=== PATIENT | male | born 2000 | race American Indian/Alaskan Native ===

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

== ENCOUNTER 2019-07-15 01:51 | Emergency (ER) | payer SELFPAY ==
[2019-07-15 02:04] VITALS: BP 118/80
[2019-07-15] MEDS ORDERED: DICYCLOMINE 20 MG TAB PO ONE (07:29)
--- NOTE | 2019-07-15 07:33 | Emergency Department Report ---
ED Abdominal Pain HPI - General Chief Complaint: Abdominal Pain Stated Complaint: STOMACH PAIN Time Seen by Provider: 07/15/19 07:10 Source: patient, EMS Mode of arrival: Ambulatory Limitations: No Limitations - History of Present Illness Initial Comments: This is a 19-year-old -Martiniquais male who presents to the emergency room with diffuse abdominal pain started yesterday. Reports pain is occasional but lasts for several minutes to an hour. Current marijuana smoker. Patient denies recent travel, nausea, vomiting, diarrhea, fever, chills, cough, chest pain, or palpitations. MD Complaint: abdominal pain Onset/Timin -: days(s) Location: diffuse Radiation: none Migration to: no migration Severity: moderate Severity scale (0 -10): 6 Quality: cramping Consistency: intermittent Improves With: nothing Worsens With: nothing Associated Symptoms: denies other symptoms - Related Data Previous Rx's Medication Instructions Recorded Last Taken Type Oseltamivir [Tamiflu] 75 mg PO BID #10 cap 07/26/17 Unknown Rx Ibuprofen [Motrin] 800 mg PO Q8HR #30 tablet 06/22/18 Unknown Rx methOCARBAMOL [Robaxin TAB] 500 mg PO BID #10 tab 06/22/18 Unknown Rx Omeprazole 40 mg PO DAILY #30 capsule. 07/15/19 Unknown Rx Allergies Allergy/AdvReac Type Severity Reaction Status Date / Time No Known Allergies Allergy Verified 06/05/18 06:09 ED Review of Systems ROS: Stated complaint: STOMACH PAIN Other details as noted in HPI Constitutional: denies: chills, fever Respiratory: denies: cough, shortness of breath, wheezing Cardiovascular: denies: chest pain, palpitations Gastrointestinal: abdominal pain. denies: nausea, diarrhea Musculoskeletal: denies: back pain, joint swelling, arthralgia Skin: denies: rash, lesions Neurological: denies: headache, weakness, paresthesias Psychiatric: denies: anxiety, depression ED Past Medical Hx - Surgical History Additional Surgical History: PE tubes - Social History Smoking Status: Never Smoker Substance Use Type: Alcohol - Medications Home Medications: Home Medications Medication Instructions Recorded Confirmed Last Taken Type Oseltamivir [Tamiflu] 75 mg PO BID #10 cap 07/26/17 Unknown Rx Ibuprofen [Motrin] 800 mg PO Q8HR #30 tablet 06/22/18 Unknown Rx methOCARBAMOL [Robaxin TAB] 500 mg PO BID #10 tab 06/22/18 Unknown Rx Omeprazole 40 mg PO DAILY #30 capsule. 07/15/19 Unknown Rx ED Physical Exam - General Limitations: No Limitations General appearance: alert, in no apparent distress - Respiratory Respiratory exam: Present: normal lung sounds bilaterally. Absent: respiratory distress - Cardiovascular Cardiovascular Exam: Present: regular rate, normal rhythm. Absent: systolic murmur, diastolic murmur, rubs, gallop - GI/Abdominal GI/Abdominal exam: Present: soft, normal bowel sounds. Absent: distended, tenderness, guarding, rebound, rigid, organomegaly - Back Exam Back exam: Absent: CVA tenderness (R), CVA tenderness (L) - Neurological Exam Neurological exam: Present: alert, oriented X3, normal gait - Psychiatric Psychiatric exam: Present: normal affect, normal mood - Skin Skin exam: Present: warm, dry, intact, normal color. Absent: rash ED Course Vital Signs 07/15/19 02:02 Temperature 98.7 F Pulse Rate 68 Respiratory 14 Rate Blood Pressure 118/80 O2 Sat by Pulse 100 Oximetry ED Medical Decision Making - Lab Data Result diagrams: 07/15/19 07:37 07/15/19 07:37 Lab Results 07/15/19 07/15/19 07/15/19 Range/Units 07:37 07:37 08:26 WBC 6.6 (4.5-11.0) K/mm3 RBC 4.73 (3.65-5.03) M/mm3 Hgb 13.5 (11.8-15.2) gm/dl Hct 39.4 (35.5-45.6) % MCV 83 L (84-94) fl MCH 29 (28-32) pg MCHC 34 (32-34) % RDW 15.2 (13.2-15.2) % Plt Count 169 (140-440) K/mm3 Sodium 142 (137-145) mmol/L Potassium 3.6 (3.6-5.0) mmol/L Chloride 106.2 (98-107) mmol/L Carbon Dioxide 25 (22-30) mmol/L Anion Gap 14 mmol/L BUN 9 (9-20) mg/dL Creatinine 0.8 (0.8-1.5) mg/dL Estimated GFR > 60 ml/min BUN/Creatinine Ratio 11 % Glucose 100 (75-100) mg/dL Calcium 9.1 (8.4-10.2) mg/dL Total Bilirubin 0.80 (0.1-1.2) mg/dL AST 14 (5-40) units/L ALT 10 (7-56) units/L Alkaline Phosphatase 29 L (35-129) units/L Total Protein 5.4 L (6.3-8.2) g/dL Albumin 3.7 L (3.9-5) g/dL Albumin/Globulin Ratio 2.2 % Lipase 20 (13-60) units/L Urine Color Yellow (Yellow) Urine Turbidity Clear (Clear) Urine pH 5.0 (5.0-7.0) Ur Specific [place] 1.025 (1.003-1.030) Urine Protein <15 mg/dl (Negative) mg/dL Urine Glucose (UA) Neg (Negative) mg/dL Urine Ketones Neg (Negative) mg/dL Urine Blood Neg (Negative) Urine Nitrite Neg (Negative) Urine Bilirubin Neg (Negative) Urine Urobilinogen < 2.0 (<2.0) mg/dL Ur Leukocyte Esterase Neg (Negative) Urine WBC (Auto) < 1.0 (0.0-6.0) /HPF Urine RBC (Auto) 2.0 (0.0-6.0) /HPF Urine Bacteria (Auto) 1+ (Negative) /HPF Urine Mucus 1+ /HPF - Medical Decision Making This is a 19 y.o. female that presents with diffuse abdominal pain for 1 day. Vitals are stable inpatient in no acute distress. Obtained CMP, CBC, & UA. All unremarkable. Abdominal exam without peritoneal signs. No signs of dehydration. No evidence of surgical abdomen or other acute medical emergency including bowel obstruction. Presentation not consistent with other acute, emergent causes of vomiting/diarrhea at this time. No indication for abdominal imaging. Given Bentyl. Reassessed and reports feeling better. Start omeprazole. Discussed plan with patient and agreed to plan. No further questions noted by the patient. Follow up with PCP in 2-3 days. Strict return instructions given. Discharged home in stable condition. Critical care attestation.: If time is entered above; I have spent that time in minutes in the direct care of this critically ill patient, excluding procedure time. ED Disposition Clinical Impression: Abdominal cramping, generalized, Gastroenteritis Disposition: TO HOME OR SELFCARE Is pt being admited?: No Condition: Stable Instructions: Gastroenteritis (ED) Additional Instructions: Frequent hand washing is important to reduce spread. Prompt disinfection of contaminated surfaces with household chlorine bleach- based telegraphic service dispatcher and washing of soiled clothing and bedding should be advised. If food or water is thought to be contaminated, it should be avoided. Increase fluid intake. Drinks high in sugars such as carbonated soft drinks, fruit juice, and highly sugared liquids should be avoided. Prescriptions: Omeprazole 40 mg PO DAILY #30 capsule.dr Referrals: [facility] [Outside] - 3-5 Days [facility] [Outside] - 3-5 Days CATHY MCKEON MD [Staff Physician] - 3-5 Days Forms: Work/School Release Form(ED) Time of Disposition: 10:14
[2019-07-15 07:52] LABS: Hematocrit 39.4 % (35.5-45.6); Hemoglobin 13.5 gm/dl (11.8-15.2); Mean Corpuscular HGB Conc 34 % (32-34); Mean Corpuscular Volume 83 fl (84-94); Platelet Count 169 K/mm3 (140-440); Red Blood Count 4.73 M/mm3 (3.65-5.03); Red Cell Distribution Width 15.2 % (13.2-15.2)
[2019-07-15 08:11] LABS: Alanine Aminotransferase 10 units/L (7-56); Albumin 3.7 g/dL (3.9-5); BUN/Creatinine Ratio 11; Blood Urea Nitrogen 9 mg/dL (9-20); Calcium 9.1 mg/dL (8.4-10.2); Hemolysis Index 5
[2019-07-15 08:54] LABS: Bacteria,Urine 1+ /HPF (Negative); Bilirubin,Urine NEG (Negative); Blood,Urine NEG (Negative); Color,Urine Yellow (Yellow); Mucus,Urine 1+ /HPF; Protein,Urine <15 mg/dL mg/dL (Negative); Urobilinogen,Urine < 2.0 mg/dL (<2.0); WBC,Urine < 1.0 /HPF (0.0-6.0)
== END 2019-07-15 10:35 | disposition home or self-care (01) ==
LOC: ED 01:51
DX: K21.9 Gastro-esophageal reflux disease without esophagitis (principal); Z79.899 Other long term (current) drug therapy
CPT/HCPCS: 36415; 80053; 81001; 83690; 85027

== ENCOUNTER 2019-07-22 20:27 | Emergency (ER) | payer SELFPAY ==
[2019-07-22 20:37] VITALS: BP 113/74
[2019-07-22] MEDS ORDERED: TETANUS,DIPH,PERTUSS(ACELL) VACCINE 0.5 ML SYRINGE IM ONE (20:39)
--- NOTE | 2019-07-22 20:42 | Event Note ---
ED Screening Note Date of service: 07/22/19 Time: 20:37 ED Screening Note: 19 y o male presents with power drill injury while working on his car today This initial assessment/diagnostic orders/clinical plan/treatment(s) is/are subject to change based on patients health status, clinical progression and re- assessment by fellow clinical providers in the ED. Further treatment and workup at subsequent clinical providers discretion. Patient/guardian urged not to elope from the ED as their condition may be serious if not clinically assessed and managed. Initial orders include: tetanus booster xr finger acc eval
--- NOTE | 2019-07-22 21:24 | XRay Report ---
LEFT HAND 3 VIEWS INDICATION / CLINICAL INFORMATION: MAIN: FB; Working on car and drilled screw into 3rd digit left hand. Pt drilled full screw out. No bl eeding. 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 No obvious deformities. Swollen. COMPARISON: None available. FINDINGS: BONES / JOINT(S): No acute fracture or subluxation. No significant arthritis. SOFT TISSUES: No significant abnormality. ADDITIONAL FINDINGS: None. Signer Name: Chato Wilson MD Signed: 07/22/2019 9:20 PM Workstation Name: [id number]
--- NOTE | 2019-07-22 23:44 | Emergency Department Report ---
ED Upper Extremity Inj HPI - General Chief Complaint: Extremity Injury, Upper Stated Complaint: DRILLED SCREW INTO LT MIDDLE FINGER Time Seen by Provider: 07/22/19 23:39 Source: patient, EMS Mode of arrival: Ambulatory Limitations: No Limitations - History of Present Illness Complaint: Injury to:: left, finger (3rd digit) Other Extremity Injury: Fingers: Left Other Injuries: none Handedness: right Place: work Improves With: none Worsens With: none Context: direct blow (was utilizing a screw and extend the screwed himself in the finger causing pain bleeding and swelling earlier today. Is tender and is worried about infection) Associated Symptoms: suspects foreign body (also range of motion of the screw broke off in his finger although he reports it was when he came out). denies: weakness, numbness, nausea/vomiting, heard/felt popping sensat - Related Data Previous Rx's Medication Instructions Recorded Last Taken Type Oseltamivir [Tamiflu] 75 mg PO BID #10 cap 07/26/17 Unknown Rx Ibuprofen [Motrin] 800 mg PO Q8HR #30 tablet 06/22/18 Unknown Rx methOCARBAMOL [Robaxin TAB] 500 mg PO BID #10 tab 06/22/18 Unknown Rx Omeprazole 40 mg PO DAILY #30 capsule. 07/15/19 Unknown Rx cephALEXin [Keflex] 500 mg PO Q8HR #21 cap 07/22/19 Unknown Rx Allergies Allergy/AdvReac Type Severity Reaction Status Date / Time No Known Allergies Allergy Verified 06/05/18 06:09 ED Review of Systems ROS: Stated complaint: DRILLED SCREW INTO LT MIDDLE FINGER Other details as noted in HPI Comment: All other systems reviewed and negative ED Past Medical Hx - Surgical History Additional Surgical History: PE tubes - Social History Smoking Status: Current Every Day Smoker Substance Use Type: None - Medications Home Medications: Home Medications Medication Instructions Recorded Confirmed Last Taken Type Oseltamivir [Tamiflu] 75 mg PO BID #10 cap 07/26/17 Unknown Rx Ibuprofen [Motrin] 800 mg PO Q8HR #30 tablet 06/22/18 Unknown Rx methOCARBAMOL [Robaxin TAB] 500 mg PO BID #10 tab 06/22/18 Unknown Rx Omeprazole 40 mg PO DAILY #30 capsule. 07/15/19 Unknown Rx cephALEXin [Keflex] 500 mg PO Q8HR #21 cap 07/22/19 Unknown Rx ED Physical Exam - General Limitations: No Limitations General appearance: alert, in no apparent distress - Head Head exam: Present: atraumatic, normocephalic - Eye Eye exam: Present: normal appearance - ENT ENT exam: Present: mucous membranes moist - Neck Neck exam: Present: normal inspection - Respiratory Respiratory exam: Present: normal lung sounds bilaterally. Absent: respiratory distress - Cardiovascular Cardiovascular Exam: Present: regular rate, normal rhythm. Absent: systolic murmur, diastolic murmur, rubs, gallop - GI/Abdominal GI/Abdominal exam: Present: soft, normal bowel sounds - Rectal Rectal exam: Present: deferred - Extremities Exam Extremities exam: Present: normal inspection, tenderness (there is tenderness and swelling around the puncture wound to the third digit on the on the finger with some local redness. Capillary refills are brisk no discharge no lymphangitis appreciated.), normal capillary refill - Back Exam Back exam: Present: normal inspection - Neurological Exam Neurological exam: Present: alert, oriented X3 - Psychiatric Psychiatric exam: Present: normal affect, normal mood - Skin Skin exam: Present: warm, dry, intact, normal color. Absent: rash ED Course Vital Signs 07/22/19 20:31 Temperature 98.5 F Pulse Rate 73 Respiratory 20 Rate Blood Pressure 113/74 O2 Sat by Pulse 97 Oximetry ED Medical Decision Making - Radiology Data Radiology results: report reviewed Referring Physician: TEODORO HIRSCH Patient Name: ALEKS JAQUEZ Date of : 2000 Sex: Male Report Date: 2019-07-22 Report Status: Finalized Findings [facility] [address] [place] [address] XRay Report Signed Patient: ALEKS JAQUEZ MR#: [id number] : 2000 Acct:[id number] Age/Sex: 19 / M ADM Date: 07/22/19 Loc: ED Attending Dr: Ordering Physician: TASH GRIGSBY Date of Service: 07/22/19 Procedure(s): XR hand 3+V LT Accession Number(s): [id number] cc: TASH GRIGSBY Fluoro Time In Minutes: LEFT HAND 3 VIEWS INDICATION / CLINICAL INFORMATION: MAIN: FB; Working on car and drilled screw into 3rd digit left hand. Pt drilled full screw out. No bleeding. 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 No obvious deformities. Swollen. COMPARISON: None available. FINDINGS: BONES / JOINT(S): No acute fracture or subluxation. No significant arthritis. SOFT TISSUES: No significant abnormality. ADDITIONAL FINDINGS: None. Signer Name: Chato Wilson MD Signed: 07/22/2019 9:20 PM Workstation Name: [id number] Transcribed By: ES Dictated By: Chato Wilson MD Electronically Authenticated By: Chato Wilson MD Signed Date/Time: 07/22/192119 DD/ 18 - Medical Decision Making 19-year-old male status post puncture wound in the finger with a screw while working on car. Tetanus shot was updated in the x-ray showed no evidence of any foreign bodies or fractures. No evidence of any emergent Condition. Will have him to follow-up in 48 hours for wound recheck with the primary care provider Critical care attestation.: If time is entered above; I have spent that time in minutes in the direct care of this critically ill patient, excluding procedure time. ED Disposition Clinical Impression: Puncture wound Disposition: DC-01 TO HOME OR SELFCARE Is pt being admited?: No Does the pt Need Aspirin: No Condition: Stable Instructions: Puncture Wound (ED) Prescriptions: cephALEXin [Keflex] 500 mg PO Q8HR #21 cap Referrals: PRIMARY MD PARAMJIT [Primary Care Provider] - 3-5 Days CATHY MCKEON MD [Staff Physician] - 2-3 Days (Please follow up for reevaluation)
[2019-07-23] MEDS ORDERED: TETANUS,DIPH,PERTUSS(ACELL) VACCINE 0.5 ML SYRINGE IM ONE (00:39)
== END 2019-07-23 00:43 | disposition home or self-care (01) ==
LOC: ED 20:27
DX: S61.233A Puncture wound without foreign body of left middle finger without damage to nail, initial encounter (principal); F17.200 Nicotine dependence, unspecified, uncomplicated; Z79.899 Other long term (current) drug therapy; W29.8XXA Contact with other powered hand tools and household machinery, initial encounter; Y93.89 Activity, other specified; Y92.89 Other specified places as the place of occurrence of the external cause; Y99.8 Other external cause status
CPT/HCPCS: 90471; 90715